=== PATIENT | male | born 1965 | race Caucasian/White ===

== ENCOUNTER 2016-06-13 02:17 | Emergency (ER) | payer SELFPAY ==
[2016-06-13] MEDS ORDERED: FAMOTIDINE 20 MG TABLET PO ONE (03:20)
--- NOTE | 2016-06-13 03:20 | ER Document Report ---
ED General - General Chief Complaint: Chest Pain > 30 Stated Complaint: CHEST PAIN Time seen by provider: 03:04 Mode of Arrival: Ambulatory Information source: Patient Notes: 50-year-old male presents to ED for chest pain, dull with pressure all over with no radiation. Patient states his brother had a MT about a month ago and he 66 years old his mother and father both had heart trouble. Patient states his father had to have multiple stents but of lung cancer his mother had a heart attack at 64 but from complications occasions of scleroderma. TRAVEL OUTSIDE OF THE [place] IN LAST 30 DAYS: No - HPI Onset: This morning - 1:30 this morning Onset/Duration: Intermittent Quality of pain: Dull, Pressure Severity: Moderate Pain Level: 3 Associated symptoms: Chest pain - With epigastric pain Exacerbated by: Denies Relieved by: Denies Similar symptoms previously: Yes Recently seen / treated by doctor: No - Related Data Allergies/Adverse Reactions: No Known Allergies Allergy (Verified 06/13/16 02:30) Home Medications: Current Home Medications Oxycodone HCl [Oxycodone HCl 10 MG Tablet] 1 tab PO QID 06/13/16 [History] Past Medical History - General Information source: Patient - Social History Smoking Status: Current Every Day Smoker Cigarette use (# per day): Yes - pack per day Chew tobacco use (# tins/day): No Smoking Education Provided: Yes - acetaminophen 2 minutes Frequency of alcohol use: Rare - Once or twice a year Drug Abuse: None Occupation: DJ Lives with: Family Family History: Arthritis, CAD, COPD, CVA, DM, Hyperlipidemia, Hypertension, Malignancy, Other - scleroderma. denies: Thyroid Disfunction - Past Medical History Cardiac Medical History: Reports: None Pulmonary Medical History: Reports: None EENT Medical History: Reports: None Neurological Medical History: Reports: None Endocrine Medical History: Reports: None Renal/ Medical History: Reports: None Malignancy Medical History: Reports None GI Medical History: Reports: Hx Gastroesophageal Reflux Disease Musculoskeltal Medical History: Reports Hx Gout, Reports Hx Musculoskeletal Deformity, Reports Hx Musculoskeletal Trauma Skin Medical History: Reports None Psychiatric Medical History: Reports: None Traumatic Medical History: Reports: Hx Fractures - Pelvic bone and fingers Infectious Medical History: Reports: None Past Surgical History: Reports: Hx Inguinal Hernia, Hx Orthopedic Surgery - pin in finger - Immunizations Immunizations up to date: Yes Hx Diphtheria, Pertussis, Tetanus Vaccination: Yes - 2008 History of Influenza Vaccine for 02/2016 - 07/2016 Season: No Review of Systems - Review of Systems Constitutional: No symptoms reported EENT: No symptoms reported Cardiovascular: Chest pain. denies: Palpitations, Heart racing, Dyspnea, Syncope, Dizziness, Lightheaded Respiratory: No symptoms reported Gastrointestinal: Other - Epigastric pain Genitourinary: No symptoms reported Male Genitourinary: No symptoms reported Musculoskeletal: No symptoms reported Skin: No symptoms reported Hematologic/Lymphatic: No symptoms reported Neurological/Psychological: No symptoms reported, Sensory change Physical Exam - Vital signs Vitals: Temp Pulse Resp BP Pulse Ox 98.1 F 82 16 129/81 H 99 06/13/16 02:34 06/13/16 02:34 06/13/16 02:34 06/13/16 02:34 06/13/16 02:34 Interpretation: Normal - General General appearance: Appears well, Alert - HEENT Head: Normocephalic, Atraumatic Eyes: Normal Pupils: PERRL - Respiratory Respiratory status: No respiratory distress Chest status: Nontender Breath sounds: Normal Chest palpation: Normal - Cardiovascular Rhythm: Regular Heart sounds: Normal auscultation Murmur: No - Abdominal Inspection: Normal Distension: No distension Bowel sounds: Normal Tenderness: Nontender Organomegaly: No organomegaly - Back Back: Normal, Nontender - Extremities General upper extremity: Normal inspection, Nontender, Normal color, Normal ROM , Normal temperature General lower extremity: Normal inspection, Nontender, Normal color, Normal ROM , Normal temperature, Normal weight bearing. No: Susie's sign - Neurological Neuro grossly intact: Yes Cognition: Normal Orientation: AAOx4 Saranya Coma Scale Eye Opening: Spontaneous [place] Coma Scale Verbal: Oriented Saranya Coma Scale Motor: Obeys Commands [place] Coma Scale Total: 15 Speech: Normal Motor strength normal: LUE, RUE, LLE, RLE Sensory: Normal - Psychological Associated symptoms: Normal affect, Normal mood - Skin Skin Temperature: Warm Skin Moisture: Dry Skin Color: Normal Course - Re-evaluation Re-evalutation: 06/13/16 07:30 Discussed history and physical with Dr. Jones, she recommended a repeat troponin and if that was normal to discharge patient home to follow-up with his primary doctor. Patient has no personal risk factors except for he smokes. I discussed his family medical history with Dr. Jones also she stated he just needs to follow-up with his primary doctor. All lab results and chest x-ray results given to patient for follow-up. A she was not given aspirin in the ED as he had taken 650 milligram aspirin before coming to the emergency room. - Vital Signs Vital signs: Temp Pulse Resp BP Pulse Ox 98.1 F 82 14 131/77 H 97 06/13/16 02:34 06/13/16 02:34 06/13/16 07:01 06/13/16 07:01 06/13/16 07:01 - Laboratory Result Diagrams: 06/13/16 03:11 06/13/16 03:11 Laboratory results interpreted by me: 06/13/16 06/13/16 06/13/16 03:11 03:11 03:11 RBC 4.25 L Hgb 13.2 L AST 16 L NT-Pro-B Natriuret Pep 153 H Albumin 3.4 L - Diagnostic Test Radiology reviewed: Image reviewed, Reports reviewed - EKG Interpretation by Me When compared to previous EKG there are: No significant change Discharge - Discharge Clinical Impression: Chest pain of uncertain etiology Condition: Stable Disposition: HOME, SELF-CARE Instructions: Family Physicians / Practices Additional Instructions: CHEST PAIN OF UNCLEAR CAUSE: The exact cause of your chest pain isn't clear. Fortunately, there is no evidence of a dangerous medical condition. Further testing may be required to find the source of the pain. Most often, we find that this pain is coming from the chest wall -- the muscles or rib joints in the chest. But chest pain can come from the lung and lung lining, the esophagus, the heart valves or heart lining, and even the stomach or gallbladder. Rest. Eat lightly until the pain is gone. We may prescribe medicine for pain and inflammation. You should call the physician immediately if the pain radiates to the shoulder, jaw or arms; if you start to run a fever or develop a cough; or if you develop shortness of breath, or other new or alarming symptoms. NORMAL EXAM AND WORKUP: At this time, your examination and workup show no significant abnormality. No significant abnormal physical findings were noted. All laboratory, EKG, and imaging (x-ray, CT scans, ultrasound) studies that were ordered show no significant abnormality. Although your examination and all studies that were ordered showed no significant abnormal finding, there are no examinations and no studies that are 100% accurate. There is always the possibility that some abnormality could exist and not be detected with physical examination or within the limits and capabilities of laboratory and other studies. You should return or follow up as you were instructed on your visit today for further evaluation if your symptoms do not resolve. ACID REFLUX DISEASE (GERD): Gastro-Esophageal Reflux Disease (GERD) is caused by stomach acid refluxing back up into the esophagus. The valve at the end of the esophagus may be weak. This is common in persons with a hiatal hernia. GERD symptoms can include indigestion, chest pain, heartburn, or food "sticking." Certain foods, alcohol, and aspirin can make GERD worse. Treatment depends on the severity. Usually, antacids or acid-suppressing medicines are used. When the esophagus is acutely inflamed, the physician will often prescribe membrane-protective drugs such as Carafate. Some patients benefit from medication such as Reglan that tightens the valve at the top of the stomach. Avoid those foods that bring on your symptoms. For many people, these foods are coffee, chocolate, onions, garlic, and carbonated drinks. Don't use alcohol, aspirin, caffeine, or tobacco. Don't eat late at night -- within 4 hours of bedtime. Don't over-eat. If necessary, elevate the head of your bed about 4 inches so that stomach acid will not roll up into your esophagus. Call the doctor if you develop severe chest pain, inability to swallow fluids, fever, or worsening symptoms. ASPIRIN: Aspirin has been shown to have a beneficial effect on blood circulation by reducing the clotting effect of platelets in the blood. These beneficial effects can be achieved by taking just a single baby (81 mg) aspirin a day. It is recommended that any person over the age of forty take a single baby aspirin every day for heart and brain circulation, unless you are allergic to aspirin or have some significant bleeding disorder. It is strongly recommended that people who have proven cardiac or blood circulation disturbances should take a baby aspirin every day. ANTACID THERAPY: You have been instructed to start antacid therapy. Antacids directly neutralize stomach acid. This is useful for acid irritation of the esophagus, gastritis, and ulcers. You should take two tablespoons of antacid one hour after each meal and three hours after each meal. If you are not eating, take the antacid every two hours. If you are using a concentrate (such as Maalox TC), use only one tablespoon. Many antacids affect the bowels. The most common problem is diarrhea. In this case, a pure aluminum hydroxide antacid (such as AlternaGel) can be substituted for some or all doses. If the problem is constipation, add a teaspoon of Milk of Magnesia to each dose. Call the doctor if you experience continued diarrhea or constipation, or if you develop lightheadedness, bloody stool or vomitus, severe abdominal pain, or black stool. FOLLOW-UP CARE: If you have been referred to a physician for follow-up care, call the physician s office for an appointment as you were instructed or within the next two days. If you experience worsening or a significant change in your symptoms, notify the physician immediately or return to the Emergency Department at any time for re-evaluation. Please call your primary doctor today and schedule a follow-up visit. If you have any return of chest pain any shortness of breath sweating or any other concerns please return to the hospital immediately.
[2016-06-13 03:27] LABS: ABSOLUTE BASOPHILS # (AUTO) 0.1 10^3/uL (0.0-0.2); ABSOLUTE EOSINOPHILS # (AUTO) 0.4 10^3/uL (0.0-0.6); ABSOLUTE MONOCYTES (AUTO) 0.9 10^3/uL (0.1-1.4); BASOPHILS % (AUTO) 0.7 % (0-2); EOSINOPHILS % (AUTO) 4.5 % (0-6); HEMATOCRIT 38.7 % (37.9-51.0); HEMOGLOBIN 13.2 g/dL (13.5-17.0); HGB HCT DIFFERENCE 0.9; MEAN CORPUSCULAR HGB CONC 34.1 g/dL (32.0-36.0); MEAN CORPUSCULAR VOLUME 91 fl (80-97); RED BLOOD COUNT 4.25 10^6/uL (4.35-5.55); RED CELL DISTRIBUTION WIDTH 11.8 % (11.5-14.0); SEGMENTED NEUTROPHILS % (AUTO) 53.8 % (42-78); WHITE BLOOD COUNT 9.4 10^3/uL (4.0-10.5)
[2016-06-13 03:59] LABS: ALANINE AMINOTRANSFERASE 22 U/L (21-72); ALBUMIN 3.4 g/dL (3.5-5.0); ALKALINE PHOSPHATASE 92 U/L (38-126); ANION GAP 10 (5-19); ASPARTATE AMINO TRANSFERASE 16 U/L (17-59); BILIRUBIN,TOTAL 0.2 mg/dL (0.2-1.3); BLOOD UREA NITROGEN 15 mg/dL (7-20); CALCIUM 8.5 mg/dL (8.4-10.2); CARBON DIOXIDE 29 mmol/L (22-30); CHLORIDE 105 mmol/L (98-107); CREATINE KINASE 57 U/L (55-170); CREATININE RESULT 0.99 mg/dL (0.52-1.25); GLUCOSE 95 mg/dL (75-110); MAGNESIUM 1.6 mg/dL (1.6-2.3); TOTAL PROTEIN 6.9 g/dL (6.3-8.2)
[2016-06-13 04:04] LABS: APPEARANCE,URINE CLEAR; BILIRUBIN,URINE NEGATIVE (NEGATIVE); GLUCOSE, URINE NEGATIVE (NEGATIVE); KETONES,URINE NEGATIVE (NEGATIVE); LEUKOCYTE ESTERASE,URINE NEGATIVE (NEGATIVE); NITRITE,URINE NEGATIVE (NEGATIVE); PROTEIN,URINE NEGATIVE (NEGATIVE); URINE SPECIFIC GRAVITY 1.017; UROBILINOGEN,URINE NEGATIVE mg/dL (<2.0)
[2016-06-13 04:11] LABS: CREATINE KINASE MB 0.31 ng/mL (<4.55)
[2016-06-13 04:15] LABS: TROPONIN I < 0.012 ng/mL
[2016-06-13 07:47] VITALS: BP 124/80
--- NOTE | 2016-06-13 08:21 | EKG REPORT ---
SEVERITY:- ABNORMAL ECG - SINUS RHYTHM NONSPECIFIC INTRAVENTRICULAR CONDUCTION DELAY BORDERLINE INFERIOR Q WAVES : Confirmed by: Fernie Key MD 13-Jun-2016 08:21:03
== END 2016-06-13 07:47 | disposition home or self-care (01) ==
LOC: ER 02:17
DX: R07.9 Chest pain, unspecified (principal); I25.2 Old myocardial infarction; F17.210 Nicotine dependence, cigarettes, uncomplicated
CPT/HCPCS: 36415; 71020; 80053; 81001; 82550; 82553; 83735; 83880; 84484; 85025; 93005; 93010; 99285

== ENCOUNTER 2016-09-28 05:27 | Emergency (ER) | payer MEDICAID ==
[2016-09-28 06:41] LABS: ABSOLUTE BASOPHILS # (AUTO) 0.1 10^3/uL (0.0-0.2); ABSOLUTE EOSINOPHILS # (AUTO) 0.1 10^3/uL (0.0-0.6); ABSOLUTE LYMPHOCYTES (AUTO) 1.6 10^3/uL (0.5-4.7); ABSOLUTE MONOCYTES (AUTO) 0.9 10^3/uL (0.1-1.4); BASOPHILS % (AUTO) 0.5 % (0-2); EOSINOPHILS % (AUTO) 1.3 % (0-6); HEMATOCRIT 41.2 % (37.9-51.0); HEMOGLOBIN 13.8 g/dL (13.5-17.0); HGB HCT DIFFERENCE 0.2; LYMPHOCYTES % (AUTO) 16.9 % (13-45); MEAN CORPUSCULAR HEMOGLOBIN 30.5 pg (27.0-33.4); MEAN CORPUSCULAR HGB CONC 33.5 g/dL (32.0-36.0); MEAN CORPUSCULAR VOLUME 91 fl (80-97); MONOCYTES % (AUTO) 9.4 % (3-13); RED BLOOD COUNT 4.53 10^6/uL (4.35-5.55); RED CELL DISTRIBUTION WIDTH 12.5 % (11.5-14.0); SEGMENTED NEUTROPHILS % (AUTO) 71.9 % (42-78); WHITE BLOOD COUNT 9.7 10^3/uL (4.0-10.5)
[2016-09-28] MEDS ORDERED: KETOROLAC TROMETHAMINE INJ/PF 30 MG/1 ML SDV IV ONE (06:45)
[2016-09-28 06:52] LABS: ALANINE AMINOTRANSFERASE 23 U/L (21-72); ALKALINE PHOSPHATASE 87 U/L (38-126); ANION GAP 8 (5-19); ASPARTATE AMINO TRANSFERASE 18 U/L (17-59); BILIRUBIN,DIRECT 0.4 mg/dL (0.0-0.4); BILIRUBIN,TOTAL 0.4 mg/dL (0.2-1.3); BLOOD UREA NITROGEN 13 mg/dL (7-20); CALCIUM 9.5 mg/dL (8.4-10.2); CARBON DIOXIDE 29 mmol/L (22-30); CHLORIDE 106 mmol/L (98-107); CREATININE RESULT 1.05 mg/dL (0.52-1.25); GLUCOSE 117 mg/dL (75-110); LIPASE 83.1 U/L (23-300); POTASSIUM 4.7 mmol/L (3.6-5.0); SODIUM 143.1 mmol/L (137-145); TOTAL PROTEIN 7.4 g/dL (6.3-8.2)
--- NOTE | 2016-09-28 06:57 | ER Document Report ---
ED General - General Chief Complaint: Abdominal Pain Stated Complaint: ABDOMINAL PAIN Time Seen by Provider: 09/28/16 06:06 Mode of Arrival: Ambulatory Information source: Patient Notes: 51-year-old male history of kidney stones presents with complaints of difficulty urinating and left lower quadrant abdominal pain that started all of a sudden yesterday. Patient denies any fevers or chills nausea vomiting or diarrhea patient has had 2 previous kidney stones both on the right side in the past TRAVEL OUTSIDE OF THE [place] IN LAST 30 DAYS: No - HPI Onset: Yesterday Onset/Duration: Sudden Quality of pain: Sharp Severity: Mild Pain Level: 1 Associated symptoms: Nausea, Vomiting Exacerbated by: Other - Urination Relieved by: Denies Similar symptoms previously: Yes Recently seen / treated by doctor: No - Related Data Allergies/Adverse Reactions: No Known Allergies Allergy (Verified 06/13/16 02:30) Past Medical History - Social History Smoking Status: Current Every Day Smoker Cigarette use (# per day): Yes Chew tobacco use (# tins/day): No Smoking Education Provided: No Family History: Arthritis, CAD, COPD, CVA, DM, Hyperlipidemia, Hypertension, Malignancy, Other - scleroderma. denies: Thyroid Disfunction Pulmonary Medical History: Reports: Hx Asthma Renal/ Medical History: Reports: Hx Kidney Stones. Denies: Hx Peritoneal Dialysis GI Medical History: Reports: Hx Gastroesophageal Reflux Disease Musculoskeltal Medical History: Reports Hx Gout, Reports Hx Musculoskeletal Deformity, Reports Hx Musculoskeletal Trauma Traumatic Medical History: Reports: Hx Fractures - Pelvic bone and fingers Past Surgical History: Reports: Hx Inguinal Hernia, Hx Orthopedic Surgery - pin in finger - Immunizations Immunizations up to date: Yes Hx Diphtheria, Pertussis, Tetanus Vaccination: Yes - 2008 Review of Systems - Review of Systems Notes: PHYSICAL EXAMINATION: GENERAL: Well-appearing, well-nourished and in no acute distress. HEAD: Atraumatic, normocephalic. EYES: Pupils equal round and reactive to light, extraocular movements intact, sclera anicteric, conjunctiva are normal. ENT: Nares patent, oropharynx clear without exudates. Moist mucous membranes. NECK: Normal range of motion, supple without lymphadenopathy LUNGS: Breath sounds clear to auscultation bilaterally and equal. No wheezes rales or rhonchi. HEART: Regular rate and rhythm without murmurs ABDOMEN: Soft, mildly tender in the left lower quadrant no rebound or guarding Musculoskeletal: Normal range of motion, no pitting or edema. No cyanosis. NEUROLOGICAL: Cranial nerves grossly intact. Normal speech, normal gait. Normal sensory, motor exams PSYCH: Normal mood, normal affect. SKIN: Warm, Dry, normal turgor, no rashes or lesions noted. Physical Exam - Vital signs Vitals: Temp Pulse Resp BP Pulse Ox 97.9 F 57 L 16 148/79 H 100 09/28/16 05:46 09/28/16 05:46 09/28/16 05:46 09/28/16 05:46 09/28/16 05:46 Course - Re-evaluation Re-evalutation: 09/28/16 06:57 Patient has probable kidney stone CT pending 09/28/16 07:35 CT is consistent with a 0.2 cm kidney stone in the left distal ureter. This would be consistent with the patient's presentation, patient has blood in his urine no sign of infection he is otherwise stable for discharge After performing a Medical Screening Examination, I estimate there is LOW risk for ACUTE APPENDICITIS, BOWEL OBSTRUCTION, ACUTE CHOLECYSTITIS, PERFORATED DIVERTICULITIS, INCARCERATED HERNIA, PANCREATITIS, or PERFORATED ULCER, thus I consider the discharge disposition reasonable. Also, there is no evidence or peritonitis, sepsis, or toxicity. I have reevaluated this patient multiple times and no significant life threatening changes are noted. The patient and I have discussed the diagnosis and risks, and we agree with discharging home with close follow-up with the understanding that symptoms and presentations can change. We also discussed returning to the Emergency Department immediately if new or worsening symptoms occur. We have discussed the symptoms which are most concerning (e.g., bloody stool, fever, changing or worsening pain, intractable vomiting - standard verbal up date) that necessitate immediate return. - Vital Signs Vital signs: Temp Pulse Resp BP Pulse Ox 97.9 F 57 L 16 148/79 H 100 09/28/16 05:46 09/28/16 05:46 09/28/16 05:46 09/28/16 05:46 09/28/16 05:46 - Laboratory Result Diagrams: 09/28/16 06:00 09/28/16 06:00 Laboratory results interpreted by me: 09/28/16 09/28/16 06:00 06:00 Glucose 117 H Urine Blood LARGE H - Diagnostic Test Radiology reviewed: Image reviewed, Reports reviewed - 2 Millimeter stone Discharge - Discharge Clinical Impression: Left ureteral stone, Hematuria Abdominal pain Qualifiers: Abdominal location: left lower quadrant Qualified Code(s): R10.32 - Left lower quadrant pain Condition: Stable Disposition: HOME, SELF-CARE Instructions: Abdominal Pain ([facility]), Kidney Stone ([facility]) Prescriptions: Ondansetron [Zofran Odt] 8 mg PO Q6 #10 tab.rapdis Oxycodone HCl/Acetaminophen [Percocet 5-325 mg Tablet] 1 tab PO Q6 #15 tab Tamsulosin HCl [Flomax 0.4 mg Cap.sr] 0.4 mg PO DAILY #14 cap.sr.24h Referrals: CIELO IZQUIERDO MD [Primary Care Provider] - Follow up as needed RANDALL SULTANA MD [ACTIVE STAFF] - Follow up in 3-5 days
[2016-09-28 06:58] LABS: APPEARANCE,URINE SLIGHTLY-CLOUDY; BILIRUBIN,URINE NEGATIVE (NEGATIVE); GLUCOSE, URINE NEGATIVE (NEGATIVE); KETONES,URINE NEGATIVE (NEGATIVE); LEUKOCYTE ESTERASE,URINE NEGATIVE (NEGATIVE); NITRITE,URINE NEGATIVE (NEGATIVE); PROTEIN,URINE NEGATIVE (NEGATIVE); URINE SPECIFIC GRAVITY 1.015; UROBILINOGEN,URINE NEGATIVE mg/dL (<2.0)
--- NOTE | 2016-09-28 07:14 | RADIOLOGY REPORT (SQ) ---
EXAM DESCRIPTION: CT LTD RENAL STONE PROTOCOL ON COMPLETED DATE/TIME: 09/28/2016 7:01 am REASON FOR STUDY: left lower quadrant pain, hx of stones COMPARISON: None. TECHNIQUE: CT scan of the abdomen and pelvis performed without intravenous or oral contrast. Images reviewed with lung, soft tissue, and bone windows. Reconstructed coronal and sagittal MPR images revi ewed. All images stored on PACS. All CT scanners at this facility use dose modulation, iterative reconstruction, and/or weight based d osing when appropriate to reduce radiation dose to as low as reasonably achievable (ALARA). [facility]: Dose Right [facility]: CareDose [facility]: Dose Right [facility]: Teradose 4D [facility]: NeurOp RADIATION DOSE: 11.16mGy. LIMITATIONS: None. FINDINGS: LOWER CHEST: No significant findings. No nodules or infiltrates. NON-CONTRASTED LIVER, SPLEEN, ADRENALS: Evaluation limited by lack of IV contrast. No identified sign ificant masses. Mild hepatic steatosis. PANCREAS: No masses. No peripancreatic inflammatory changes. GALLBLADDER: No identified stones by CT criteria. No inflammatory changes to suggest cholecystitis. RIGHT KIDNEY AND URETER: No suspicious masses. Assessment limited by lack of IV contrast. No signif icant calcifications. No hydronephrosis or hydroureter. LEFT KIDNEY AND URETER: 0.2 cm left distal ureteral stone within 3 cm of the left ureterovesicular ju nction with minimal left hydroureter and mild dilation of the left renal pelvis. Minimal left perine phric fat stranding. AORTA AND RETROPERITONEUM: No aneurysm. No retroperitoneal masses or adenopathy. BOWEL AND PERITONEAL CAVITY: No obvious masses or inflammatory changes. No free fluid. APPENDIX: Normal. PELVIS, BLADDER, AND ABDOMINAL WALL:No abnormal masses. No free fluid. Bladder normal. BONES: L5 developmental limbus vertebral body. Mild disc desiccation at the thoracolumbar junction. Minimal developmental T12 anterior vertebral wedging. OTHER: No other significant finding. IMPRESSION: 0.2 cm left distal ureteral stone with low-grade obstruction. TECHNICAL DOCUMENTATION: JOB ID: [id number] Quality ID # [id number]: Final reports with documentation of one or more dose reduction techniques (e.g., Au tomated exposure control, adjustment of the mA and/or kV according to patient size, use of iterative reconstruction technique) 2010 [employer]- All Rights Reserved
[2016-09-28 07:47] VITALS: BP 138/87
== END 2016-09-28 07:47 | disposition home or self-care (01) ==
LOC: ER 05:27
DX: N20.1 Calculus of ureter (principal); R31.9 Hematuria, unspecified; R10.32 Left lower quadrant pain; R11.2 Nausea with vomiting, unspecified; F17.210 Nicotine dependence, cigarettes, uncomplicated; Z87.442 Personal history of urinary calculi
CPT/HCPCS: 99284; 96374; 36415; 83690; 85025; 80053; 81001; 76380; J1885

== ENCOUNTER 2016-12-05 08:42 | Emergency (ER) | payer MEDICAID ==
[2016-12-05 09:16] VITALS: BP 132/83
--- NOTE | 2016-12-05 09:19 | ER Document Report ---
ED General - General Chief Complaint: Blood Pressure Problem Stated Complaint: BLOOD PRESSURE CONCERNS Time Seen by Provider: 12/05/16 09:05 Mode of Arrival: Ambulatory Information source: Patient Notes: 51-year-old male presents with complaints of high blood pressure noted on his pressure cuff at home. Patient denies any chest pain shortness breath difficulty breathing. Patient does note that his has had viral URI symptoms and that he feels like he has a cough but has not been coughing. Patient denies any headache or neurological deficits patient denies a history of high blood pressure. Patient attempted to go to primary care physician who was closed today TRAVEL OUTSIDE OF THE [place] IN LAST 30 DAYS: No - HPI Onset: Just prior to arrival Onset/Duration: Sudden Quality of pain: No pain Severity: None Pain Level: Denies Associated symptoms: Other Exacerbated by: Denies Relieved by: Denies Similar symptoms previously: No Recently seen / treated by doctor: No - Related Data Allergies/Adverse Reactions: No Known Allergies Allergy (Verified 12/05/16 08:46) Past Medical History - Social History Smoking Status: Current Every Day Smoker Cigarette use (# per day): Yes Chew tobacco use (# tins/day): No Smoking Education Provided: No Family History: Arthritis, CAD, COPD, CVA, DM, Hyperlipidemia, Hypertension, Malignancy, Other - scleroderma. denies: Thyroid Disfunction Pulmonary Medical History: Reports: Hx Asthma Renal/ Medical History: Reports: Hx Kidney Stones. Denies: Hx Peritoneal Dialysis GI Medical History: Reports: Hx Gastroesophageal Reflux Disease Musculoskeltal Medical History: Reports Hx Gout, Reports Hx Musculoskeletal Deformity, Reports Hx Musculoskeletal Trauma Traumatic Medical History: Reports: Hx Fractures - Pelvic bone and fingers Past Surgical History: Reports: Hx Inguinal Hernia, Hx Orthopedic Surgery - pin in finger - Immunizations Immunizations up to date: Yes Hx Diphtheria, Pertussis, Tetanus Vaccination: Yes - 2008 Review of Systems - Review of Systems Notes: REVIEW OF SYSTEMS: CONSTITUTIONAL : Denies fever, chills, or sweats. Denies recent illness. EENT: Denies eye, ear, throat, or mouth pain or symptoms. Denies nasal or sinus congestion or discharge. Denies throat, tongue, or mouth swelling or difficulty swallowing. CARDIOVASCULAR: Denies chest pain. Denies palpitations or racing or irregular heart beat. Denies ankle edema. RESPIRATORY: Admits to nonproductive cough GASTROINTESTINAL: Denies abdominal pain or distention. Denies nausea, vomiting , or diarrhea. Denies blood in vomitus, stools, or per rectum. Denies black, tarry stools. Denies constipation. GENITOURINARY: Denies difficulty urinating, painful urination, burning, frequency, blood in urine, or discharge. MUSCULOSKELETAL: Denies back or neck pain or stiffness. Denies joint pain or swelling. SKIN: Denies rash, lesions or sores. HEMATOLOGIC : Denies easy bruising or bleeding. LYMPHATIC: Denies swollen, enlarged glands. NEUROLOGICAL: Denies confusion or altered mental status. Denies passing out or loss of consciousness. Denies dizziness or lightheadedness. Denies headache. Denies weakness or paralysis or loss of use of either side. Denies problems with gait or speech. Denies sensory loss, numbness, or tingling. Denies seizures. PSYCHIATRIC: Denies anxiety or stress. Denies depression, suicidal ideation, or homicidal ideation. ALL OTHER SYSTEMS REVIEWED AND NEGATIVE. Dictation was performed using [employer] voice recognition software PHYSICAL EXAMINATION: GENERAL: Well-appearing, well-nourished and in no acute distress. HEAD: Atraumatic, normocephalic. EYES: Pupils equal round and reactive to light, extraocular movements intact, sclera anicteric, conjunctiva are normal. ENT: Nares patent, oropharynx clear without exudates. Moist mucous membranes. NECK: Normal range of motion, supple without lymphadenopathy LUNGS: Breath sounds clear to auscultation bilaterally and equal. No wheezes rales or rhonchi. HEART: Regular rate and rhythm without murmurs ABDOMEN: Soft, nontender, nondistended abdomen. No guarding, no rebound. No masses appreciated. Musculoskeletal: Normal range of motion, no pitting or edema. No cyanosis. NEUROLOGICAL: Cranial nerves grossly intact. Normal speech, normal gait. Normal sensory, motor exams PSYCH: Normal mood, normal affect. SKIN: Warm, Dry, normal turgor, no rashes or lesions noted. Physical Exam - Vital signs Vitals: Temp Pulse Resp BP Pulse Ox 98.4 F 82 18 151/78 H 98 12/05/16 08:46 12/05/16 08:46 12/05/16 08:46 12/05/16 08:46 12/05/16 08:46 Course - Re-evaluation Re-evalutation: 12/05/16 09:15 The patient had his blood pressure cuff with him, I checked his blood pressure at the same time that his blood pressure cuff was going on, there was a significant difference his was noted to be 169/93 while our blood pressure was noted to be 132/83 Patient was also evaluated for his cough, he notes that his has had viral syndrome over the past week. Patient otherwise in no significant distress. Patient will be given follow-up with cardiology for further evaluation and care After performing a Medical Screening Examination, I estimate there is LOW risk for RUPTURED ESOPHAGUS, PNEUMOTHORAX, PULMONARY EMBOLISM, ACUTE CORONARY SYNDROME, OR THORACIC AORTIC DISSECTION, thus I consider the discharge disposition reasonable. I have reevaluated this patient multiple times and no significant life threatening changes are noted. The patient and I have discussed the diagnosis and risks, and we agree with discharging home with close follow-up. We also discussed returning to the Emergency Department immediately if new or worsening symptoms occur. We have discussed the symptoms which are most concerning (e.g., bloody sputum, worsening pain or shortness of breath) that necessitate immediate return. - Vital Signs Vital signs: Temp Pulse Resp BP Pulse Ox 98.4 F 82 18 151/78 H 98 12/05/16 08:46 12/05/16 08:46 12/05/16 08:46 12/05/16 08:46 12/05/16 08:46 Discharge - Discharge Clinical Impression: Cough HTN (hypertension) Qualifiers: Hypertension type: essential hypertension Qualified Code(s): I10 - Essential ( primary) hypertension Condition: Stable Disposition: HOME, SELF-CARE Instructions: High Blood Pressure ([facility]) Referrals: HUMA OCASIO MD [ACTIVE STAFF] - Follow up tomorrow
== END 2016-12-05 09:22 | disposition home or self-care (01) ==
LOC: ER 08:42
DX: I10 Essential (primary) hypertension (principal); R05 Cough; F17.210 Nicotine dependence, cigarettes, uncomplicated
CPT/HCPCS: 99283

== ENCOUNTER 2017-09-28 22:04 | Emergency (ER) | payer MEDICAID ==
--- NOTE | 2017-09-28 23:51 | RADIOLOGY REPORT (SQ) ---
EXAM DESCRIPTION: XR ANKLE 3 VIEWS CLINICAL HISTORY: 52 years Male, injury COMPARISON: None. Findings: Bones, joints, and soft tissues of the XR RIGHT ANKLE 3 VIEWS appear intact. IMPRESSION: No acute findings.
--- NOTE | 2017-09-29 00:10 | ER Document Report ---
ED Extremity Problem, Lower - General Chief Complaint: Ankle Injury Stated Complaint: LEG INJURY Time Seen by Provider: 09/28/17 23:48 Mode of Arrival: Wheelchair Information source: Patient Notes: 52-year-old male presents to the emergency department for evaluation of right ankle pain 3 days. Patient reports that he was playing racquetball on Monday and went up to hit the ball and felt something pull in his lower leg and ankle. He denies hearing a pop sound. Patient reports that he has had continuous pain since then and swelling. He denies any numbness to his foot. He reports pain with walking. He denies any knee pain or proximal tibia pain. He also denies any foot pain. He denies any fever, chest pain, shortness of breath, abdominal pain, nausea, vomiting, diarrhea, or dysuria. TRAVEL OUTSIDE OF THE [place] IN LAST 30 DAYS: No - Related Data Allergies/Adverse Reactions: No Known Allergies Allergy (Verified 12/05/16 08:46) Past Medical History - General Information source: Patient - Social History Smoking Status: Unknown if Ever Smoked Family History: Arthritis, CAD, COPD, CVA, DM, Hyperlipidemia, Hypertension, Malignancy, Other - scleroderma. denies: Thyroid Disfunction Patient has suicidal ideation: No Patient has homicidal ideation: No Pulmonary Medical History: Reports: Hx Asthma Renal/ Medical History: Reports: Hx Kidney Stones. Denies: Hx Peritoneal Dialysis GI Medical History: Reports: Hx Gastroesophageal Reflux Disease Musculoskeltal Medical History: Reports Hx Gout, Reports Hx Musculoskeletal Deformity, Reports Hx Musculoskeletal Trauma Traumatic Medical History: Reports: Hx Fractures - Pelvic bone and fingers Past Surgical History: Reports: Hx Inguinal Hernia, Hx Orthopedic Surgery - pin in finger - Immunizations Immunizations up to date: Yes Hx Diphtheria, Pertussis, Tetanus Vaccination: Yes - 2008 Review of Systems - Review of Systems -: Yes All other systems reviewed and negative Physical Exam - Vital signs Vitals: Temp Pulse Resp BP Pulse Ox 98.8 F 82 18 131/82 H 99 09/29/17 00:23 09/29/17 00:23 09/29/17 00:23 09/29/17 00:23 09/29/17 00:23 - Notes Notes: PHYSICAL EXAMINATION: GENERAL: Well-appearing, well-nourished and in no acute distress. HEAD: Atraumatic, normocephalic. Musculoskeletal: Right ankle: Mild swelling to lateral malleolus with no ecchymosis, gross deformity, erythema, or hot to the touch. Generalized tenderness to the lateral malleolus with no focal bony tenderness. Negative Martinez's test. No defect noted to the Achilles tendon. Ankle joint stable to anterior drawer test. No tenderness to the foot. No proximal tib-fib tenderness. Strong pedal pulse with brisk capillary refill. Light sensation intact. Distal neurovascular intact. NEUROLOGICAL: Gait not tested due to pain. Normal balance, speech, and facial symmetry. PSYCH: Normal mood, normal affect. SKIN: Warm, Dry, normal turgor, no rashes or lesions noted. Course - Re-evaluation Re-evalutation: 09/29/17 00:30 Patient presented to the emergency department for evaluation of ankle pain. Consistent with ankle sprain. No evidence of foot fracture, ankle dislocation or fracture, or ruptured Achilles tendon. Ankle x-ray was negative for acute process. The likelihood of other entities in the differential is insufficient to justify any further testing for them. I discussed care plan at length with patient. Any and all questions were answered. Discharged home on crutches, Vinay wrap, and Motrin. Also discharged home with number for orthopedics follow- up. I advised him to follow-up with orthopedics and take medications as instructed. I also advised him to return immediately to the emergency department for any new, worsening, or concerning symptoms as discussed. He understands and agrees with plan. - Vital Signs Vital signs: Temp Pulse Resp BP Pulse Ox 98.8 F 82 18 131/82 H 99 09/29/17 00:23 09/29/17 00:23 09/29/17 00:23 09/29/17 00:23 09/29/17 00:23 Discharge - Discharge Clinical Impression: Right ankle sprain Qualifiers: Encounter type: initial encounter Involved ligament of ankle: unspecified ligament Qualified Code(s): S93.401A - Sprain of unspecified ligament of right ankle, initial encounter Condition: Good Disposition: HOME, SELF-CARE Instructions: Vinay Wrap ([facility]), Use of Crutches ([facility]), Ice & Elevation ([facility]), Sprained Ankle ([facility]) Additional Instructions: Please follow-up with orthopedics and her primary care provider. Please take medications as instructed and return immediately to the emergency department for any new, worsening, or concerning symptoms as discussed. Prescriptions: Ibuprofen [Motrin 600 Mg Tablet] 600 mg PO TID #15 tablet Forms: Return to Work Referrals: CABRERA PARTIDA MD [ACTIVE STAFF] - Follow up as needed
[2017-09-29 00:24] VITALS: BP 131/82
== END 2017-09-29 00:35 | disposition home or self-care (01) ==
LOC: ER 22:04
DX: S93.401A Sprain of unspecified ligament of right ankle, initial encounter (principal); X58.XXXA Exposure to other specified factors, initial encounter; J45.909 Unspecified asthma, uncomplicated
CPT/HCPCS: 99283

== ENCOUNTER 2018-09-12 09:13 | Emergency (ER) | payer MEDICAID ==
[2018-09-12] MEDS ORDERED: ASPIRIN 81 MG TABLET, CHEWABLE PO ONE (09:17)
--- NOTE | 2018-09-12 09:29 | EKG REPORT ---
SEVERITY:- ABNORMAL ECG - SINUS ARRHYTHMIA, RATE 64-93 NONSPECIFIC INTRAVENTRICULAR CONDUCTION DELAY : Confirmed by: Faviola Mirza MD 12-Sep-2018 09:28:01
[2018-09-12 09:54] LABS: ABSOLUTE BASOPHILS # (AUTO) 0.1 10^3/uL (0.0-0.2); ABSOLUTE EOSINOPHILS # (AUTO) 0.3 10^3/uL (0.0-0.6); ABSOLUTE LYMPHOCYTES (AUTO) 2.9 10^3/uL (0.5-4.7); ABSOLUTE MONOCYTES (AUTO) 0.8 10^3/uL (0.1-1.4); ABSOLUTE NEUT (AUTO) 6.2 10^3/uL (1.7-8.2); EOSINOPHILS % (AUTO) 2.8 % (0-6); HEMATOCRIT 41.5 % (37.9-51.0); HEMOGLOBIN 14.1 g/dL (13.5-17.0); LYMPHOCYTES % (AUTO) 28.2 % (13-45); MEAN CORPUSCULAR HGB CONC 33.9 g/dL (32.0-36.0); MEAN CORPUSCULAR VOLUME 92 fl (80-97); PLATELET COUNT 299 10^3/uL (150-450); RED BLOOD COUNT 4.53 10^6/uL (4.35-5.55); RED CELL DISTRIBUTION WIDTH 12.9 % (11.5-14.0); TOTAL CELLS COUNTED % (AUTO) 100 %; WHITE BLOOD COUNT 10.3 10^3/uL (4.0-10.5)
--- NOTE | 2018-09-12 09:55 | RADIOLOGY REPORT (SQ) ---
EXAM DESCRIPTION: CHEST SINGLE VIEW COMPLETED DATE/TIME: 09/12/2018 9:31 am REASON FOR STUDY: bed 4 cp COMPARISON: 06/13/2016 EXAM PARAMETERS: NUMBER OF VIEWS: One view. TECHNIQUE: Single frontal radiographic view of the chest acquired. RADIATION DOSE: NA LIMITATIONS: None. FINDINGS: LUNGS AND PLEURA: No opacities, masses or pneumothorax. No pleural effusion. MEDIASTINUM AND HILAR STRUCTURES: No masses. Contour normal. HEART AND VASCULAR STRUCTURES: Heart normal in size. Normal vasculature. BONES: No acute findings. HARDWARE: None in the chest. OTHER: No other significant finding. IMPRESSION: NO ACUTE RADIOGRAPHIC FINDING IN THE CHEST. TECHNICAL DOCUMENTATION: JOB ID: [id number] [employer]- All Rights Reserved Reading location - IP/workstation name: [email or web address]
[2018-09-12 10:30] LABS: ALANINE AMINOTRANSFERASE 22 U/L (21-72); ALBUMIN 4.1 g/dL (3.5-5.0); ALKALINE PHOSPHATASE 90 U/L (38-126); ANION GAP 10 (5-19); ASPARTATE AMINO TRANSFERASE 18 U/L (17-59); BILIRUBIN,DIRECT 0.3 mg/dL (0.0-0.4); BILIRUBIN,TOTAL 0.3 mg/dL (0.2-1.3); BLOOD UREA NITROGEN 12 mg/dL (7-20); CALCIUM 9.8 mg/dL (8.4-10.2); CARBON DIOXIDE 31 mmol/L (22-30); CHLORIDE 104 mmol/L (98-107); CREATINE KINASE 70 U/L (55-170); GLUCOSE 111 mg/dL (75-110); SODIUM 144.5 mmol/L (137-145); TOTAL PROTEIN 7.5 g/dL (6.3-8.2)
[2018-09-12 10:41] LABS: CREATINE KINASE MB 0.27 ng/mL (<4.55)
[2018-09-12 10:42] LABS: TROPONIN I < 0.012 ng/mL
--- NOTE | 2018-09-12 13:03 | ER Document Report ---
Entered by GIDEON ROGERS SCRIBE 09/12/18 1119 Acting as scribe for:NAOMY HARGROVE MD ED Cardiac - General Chief Complaint: Chest Pain Stated Complaint: CHEST PAIN Time Seen by Provider: 09/12/18 10:54 Primary Care Provider: CIELO IZQUIERDO MD [Primary Care Provider] - Follow up as needed Mode of Arrival: Ambulatory Information source: Patient Notes: 53-year-old male that presents to the emergency department today with complaints of "indigestion" for the last x2 days with associated chest pain. Patient states that both times this pain lasted for about x1 hour. Patient states he has "heartburn all the time but not indigestion". 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 Patient states that both times when his pain began he was watching TV. Patient has a strong family history of heart disease including his mother, father, and brother having an OK at age 64. Patient states when the pain began he was diaphoretic but denies any nausea or vomiting. TRAVEL OUTSIDE OF THE [place] IN LAST 30 DAYS: No - Related Data Allergies/Adverse Reactions: No Known Allergies Allergy (Verified 12/05/16 08:46) Past Medical History - General Information source: Patient - Social History Smoking Status: Current Every Day Smoker Cigarette use (# per day): Yes - 1ppd Chew tobacco use (# tins/day): No Frequency of alcohol use: None Drug Abuse: None Family History: Arthritis, CAD, COPD, CVA, DM, Hyperlipidemia, Hypertension, Malignancy, Other - scleroderma Patient has suicidal ideation: No Patient has homicidal ideation: No Pulmonary Medical History: Reports: Hx Asthma Renal/ Medical History: Reports: Hx Kidney Stones GI Medical History: Reports: Hx Gastroesophageal Reflux Disease Musculoskeletal Medical History: Reports Hx Gout, Reports Hx Musculoskeletal Deformity, Reports Hx Musculoskeletal Trauma Traumatic Medical History: Reports: Hx Fractures - Pelvic bone and fingers Past Surgical History: Reports: Hx Inguinal Hernia, Hx Orthopedic Surgery - pin in finger - Immunizations Immunizations up to date: Yes Hx Diphtheria, Pertussis, Tetanus Vaccination: Yes - 2008 Review of Systems - Review of Systems Constitutional: See HPI, Diaphoresis EENT: No symptoms reported Cardiovascular: See HPI, Chest pain Respiratory: No symptoms reported Gastrointestinal: See HPI, Other - indigestion. denies: Nausea, Vomiting Genitourinary: No symptoms reported Male Genitourinary: No symptoms reported Musculoskeletal: No symptoms reported Skin: No symptoms reported Hematologic/Lymphatic: No symptoms reported Neurological/Psychological: No symptoms reported -: Yes All other systems reviewed and negative Physical Exam - Vital signs Vitals: Temp Resp BP Pulse Ox 98.2 F 17 152/80 H 100 09/12/18 09:29 09/12/18 09:29 09/12/18 09:29 09/12/18 09:29 - Notes Notes: Physical Exam: General: Alert, appears well. HEENT: Normocephalic. Atraumatic. PERRL. Extraocular movements intact. Oropharynx clear. Neck: Supple. Non-tender. Respiratory: No respiratory distress. Rhonchi with forced cough bilaterally, consistent with smoking history. Cardiovascular: Regular rate and rhythm. Abdominal: Normal Inspection. Non-tender. No distension. Normal Bowel Sounds. Back: Non-tender. No deformity or step off. Extremities: Moves all four extremities. Upper extremities: Normal inspection. Normal ROM. Lower extremities: Normal inspection. No edema. Normal ROM. Neurological: Normal cognition. AAOx4. Normal speech. Psychological: Normal affect. Normal Mood. Skin: Warm. Dry. Normal color. Course - Re-evaluation Re-evalutation: 09/12/18 14:42 I discussed the patient with his primary care provider Dr. Izquierdo. He is agreeable to seeing the patient in the office today and scheduling him for an outpatient stress test. He does not feel the patient warrants admission to the hospital for monitoring at this time. - Vital Signs Vital signs: Temp Pulse Resp BP Pulse Ox 98.2 F 11 L 123/85 100 09/12/18 09:29 09/12/18 14:00 09/12/18 13:00 09/12/18 14:00 - Laboratory Result Diagrams: 09/12/18 09:40 09/12/18 09:40 Laboratory results interpreted by me: 09/12/18 09:40 Carbon Dioxide 31 H Glucose 111 H - Diagnostic Test Radiology reviewed: Image reviewed, Reports reviewed - Chest x-ray is unremarkable - EKG Interpretation by Me EKG shows normal: Sinus rhythm, Woodruff, Intervals, QRS Complexes, ST-T Waves Rate: Normal - 85 Rhythm: NSR, Arrthymia Woodruff/QRS: IVCD When compared to previous EKG there are: No significant change - Consults Dr. Solis Time consulted: 14:30 Consulted provider: other - Will see today in the office. Discharge - Discharge Clinical Impression: Chest pain Qualifiers: Chest pain type: unspecified Qualified Code(s): R07.9 - Chest pain, unspecified Condition: Stable Disposition: HOME, SELF-CARE Additional Instructions: Go to see Dr. Izquierdo in the office now. Referrals: CIELO IZQUIERDO MD [Primary Care Provider] - Follow up as needed Scribe Attestation: 09/12/18 11:14 I personally performed the services described in the documentation, reviewed and edited the documentation which was dictated to the scribe in my presence, and it accurately records my words and actions. 09/12/18 1114 I personally performed the services described in the documentation, reviewed and edited the documentation which was dictated to the scribe in my presence, and it accurately records my words and actions.
[2018-09-12 15:59] VITALS: BP 152/87
== END 2018-09-12 15:59 | disposition home or self-care (01) ==
LOC: ER 09:13
DX: R07.9 Chest pain, unspecified (principal); K30 Functional dyspepsia; R61 Generalized hyperhidrosis; I45.9 Conduction disorder, unspecified; F17.210 Nicotine dependence, cigarettes, uncomplicated; J45.909 Unspecified asthma, uncomplicated; Z82.49 Family history of ischemic heart disease and other diseases of the circulatory system
CPT/HCPCS: 36415; 71045; 80053; 82550; 82553; 84484; 85025; 93005; 93010; 99284

== ENCOUNTER 2019-10-15 22:29 | Emergency (ER) | payer SELFPAY ==
--- NOTE | 2019-10-15 23:11 | ER Document Report ---
ED Medical Screen (RME) - General Chief Complaint: Chest Pain Stated Complaint: CHEST PAIN Time Seen by Provider: 10/15/19 23:05 Primary Care Provider: CIELO IZQUIERDO MD [Primary Care Provider] - Follow up as needed Information source: Patient Notes: Patient presents complaining of shortness of breath that started around 10 PM. Patient states he has had intermittent chest pains to the left side of the chest as well. Patient denies any dizziness, nausea or vomiting. Patient complains of feeling shaky and having a mild tremor to the hands. Patient reports history of chronic back pain. Patient does not see a doctor regularly although does have a prescription of nitroglycerin at home. Patient took 975 of aspirin at home this evening. I have greeted and performed a rapid initial assessment of this patient. A comprehensive ED assessment and evaluation of the patient, analysis of test results and completion of the medical decision making process will be conducted by additional ED providers. TRAVEL OUTSIDE OF THE [place] IN LAST 30 DAYS: No - Related Data Allergies/Adverse Reactions: No Known Allergies Allergy (Verified 10/15/19 23:03) Past Medical History Pulmonary Medical History: Reports: Hx Asthma Renal/ Medical History: Reports: Hx Kidney Stones. Denies: Hx Peritoneal Dialysis GI Medical History: Reports: Hx Gastroesophageal Reflux Disease Musculoskeltal Medical History: Reports Hx Gout, Reports Hx Musculoskeletal Deformity, Reports Hx Musculoskeletal Trauma Traumatic Medical History: Reports: Hx Fractures - Pelvic bone and fingers Past Surgical History: Reports: Hx Inguinal Hernia, Hx Orthopedic Surgery - pin in finger - Immunizations Immunizations up to date: Yes Hx Diphtheria, Pertussis, Tetanus Vaccination: Yes - 2008 Physical Exam - Vital signs Vitals: Temp Pulse Resp BP Pulse Ox 98.8 F 100 18 142/69 H 99 10/15/19 22:50 10/15/19 22:50 10/15/19 22:50 10/15/19 22:50 10/15/19 22:50 - Respiratory Respiratory status: No respiratory distress Chest status: Nontender Breath sounds: Normal - Cardiovascular Rhythm: Regular Heart sounds: S1 appreciated, S2 appreciated Course - Vital Signs Vital signs: Temp Pulse Resp BP Pulse Ox 98.8 F 100 18 142/69 H 99 10/15/19 22:50 10/15/19 22:50 10/15/19 22:50 10/15/19 22:50 10/15/19 22:50 Doctor's Discharge - Discharge Referrals: CIELO IZQUIERDO MD [Primary Care Provider] - Follow up as needed
[2019-10-16 00:27] LABS: ABSOLUTE BASOPHILS # (AUTO) 0.1 10^3/uL (0.0-0.2); ABSOLUTE EOSINOPHILS # (AUTO) 0.2 10^3/uL (0.0-0.6); ABSOLUTE LYMPHOCYTES (AUTO) 1.9 10^3/uL (0.5-4.7); ABSOLUTE NEUT (AUTO) 5.7 10^3/uL (1.7-8.2); BASOPHILS % (AUTO) 0.6 % (0-2); EOSINOPHILS % (AUTO) 1.8 % (0-6); HEMATOCRIT 38.3 % (37.9-51.0); HEMOGLOBIN 12.9 g/dL (13.5-17.0); LYMPHOCYTES % (AUTO) 21.1 % (13-45); MEAN CORPUSCULAR HEMOGLOBIN 31.7 pg (27.0-33.4); MEAN CORPUSCULAR HGB CONC 33.8 g/dL (32.0-36.0); MEAN CORPUSCULAR VOLUME 94 fl (80-97); MONOCYTES % (AUTO) 11.7 % (3-13); PLATELET COUNT 281 10^3/uL (150-450); RED BLOOD COUNT 4.08 10^6/uL (4.35-5.55); RED CELL DISTRIBUTION WIDTH 12.5 % (11.5-14.0); SEGMENTED NEUTROPHILS % (AUTO) 64.8 % (42-78); TOTAL CELLS COUNTED % (AUTO) 100 %; WHITE BLOOD COUNT 8.8 10^3/uL (4.0-10.5)
[2019-10-16 00:36] LABS: APPEARANCE,URINE CLEAR; BILIRUBIN,URINE NEGATIVE (NEGATIVE); COLOR,URINE STRAW; GLUCOSE, URINE NEGATIVE (NEGATIVE); KETONES,URINE NEGATIVE (NEGATIVE); LEUKOCYTE ESTERASE,URINE NEGATIVE (NEGATIVE); NITRITE,URINE NEGATIVE (NEGATIVE); PROTEIN,URINE NEGATIVE (NEGATIVE); URINE SPECIFIC GRAVITY 1.003; UROBILINOGEN,URINE NEGATIVE mg/dL (<2.0)
[2019-10-16 00:41] LABS: ALBUMIN 4.2 g/dL (3.5-5.0); ALKALINE PHOSPHATASE 93 U/L (38-126); ANION GAP 7 (5-19); ASPARTATE AMINO TRANSFERASE 20 U/L (17-59); BILIRUBIN,TOTAL 0.1 mg/dL (0.2-1.3); BLOOD UREA NITROGEN 14 mg/dL (7-20); CALCIUM 8.8 mg/dL (8.4-10.2); CARBON DIOXIDE 29 mmol/L (22-30); CHLORIDE 105 mmol/L (98-107); GLUCOSE 107 mg/dL (75-110); TOTAL PROTEIN 7.5 g/dL (6.3-8.2)
[2019-10-16 00:55] LABS: URINE AMPHETAMINES SCREEN NEGATIVE; URINE BARBITURATES SCREEN NEGATIVE; URINE BENZODIAZEPINES SCREEN NEGATIVE; URINE COCAINE SCREEN NEGATIVE; URINE MARIJUANA (THC) SCREEN NEGATIVE; URINE METHADONE SCREEN NEGATIVE; URINE PHENCYCLIDINE SCREEN NEGATIVE
[2019-10-16 01:17] LABS: ADD MANUAL MICROSCOPIC YES; WBC,URINE 0-1 /HPF
[2019-10-16 01:20] LABS: NT PRO BNP 211 pg/mL (<125)
[2019-10-16 01:24] LABS: TROPONIN I < 0.012 ng/mL
--- NOTE | 2019-10-16 03:16 | RADIOLOGY REPORT (SQ) ---
PA and lateral chest radiograph: 10/16/2019 2:14 AM CDT Comparison: None available Indication: 54-year old patient with chest pain. Findings: The cardiomediastinal silhouette is normal in size.No pneumothorax is seen. No acute airspace opacities are seen. No discrete pleural effusion is apparent. Impression: No acute airspace opacities are seen.
[2019-10-16] MEDS ORDERED: IPRATROPIUM/ALBUTEROL 0.5-2.5 MG/3 ML AMPUL NEB ONE (05:30)
--- NOTE | 2019-10-16 05:32 | ER Document Report ---
ED Cardiac - General Chief Complaint: Chest Pressure Stated Complaint: CHEST PAIN Time Seen by Provider: 10/15/19 23:05 Primary Care Provider: [facility] [Provider Group] - Follow up as needed [facility] [Provider Group] - Follow up as needed CIELO IZQUIERDO MD [ACTIVE STAFF] - Follow up as needed Notes: Patient is a 54-year-old male who presents emergency department with the chief complaint of shortness of breath. Shortness of breath started around 10:00 in the morning. He also has stated that he had chest pains that would be intermittent. Denies any radiation. Describes it as a palpitation feeling. Denies any chest pain at this time. Patient denies any vomiting. He took aspi rin at home. Patient is an everyday smoker. TRAVEL OUTSIDE OF THE [place] IN LAST 30 DAYS: No - Related Data Allergies/Adverse Reactions: No Known Allergies Allergy (Verified 10/15/19 23:03) Home Medications: NITRO. ANTI-NARCOTIC MEDS Past Medical History - General Information source: Patient - Social History Smoking Status: Current Every Day Smoker Frequency of alcohol use: None Drug Abuse: None Family History: Arthritis, CAD, COPD, CVA, DM, Hyperlipidemia, Hypertension, Malignancy, Other - scleroderma Patient has homicidal ideation: No Pulmonary Medical History: Reports: Hx Asthma Renal/ Medical History: Reports: Hx Kidney Stones. Denies: Hx Peritoneal Dialysis GI Medical History: Reports: Hx Gastroesophageal Reflux Disease Musculoskeletal Medical History: Reports Hx Gout, Reports Hx Musculoskeletal Deformity, Reports Hx Musculoskeletal Trauma Traumatic Medical History: Reports: Hx Fractures - Pelvic bone and fingers Past Surgical History: Reports: Hx Inguinal Hernia, Hx Orthopedic Surgery - pin in finger - Immunizations Immunizations up to date: Yes Hx Diphtheria, Pertussis, Tetanus Vaccination: Yes - 2008 Review of Systems - Review of Systems Notes: REVIEW OF SYSTEMS: CONSTITUTIONAL : Denies recent illness. Denies recent unintentional weight loss. Denies fever, chills, or sweats. EENT: Denies eye, ear, throat, or mouth pain, discharge, or symptoms. Denies nasal or sinus congestion. CARDIOVASCULAR: See HPI. RESPIRATORY: See HPI. GASTROINTESTINAL: Denies nausea, vomiting, and diarrhea. Denies abdominal pain. Denies constipation. GENITOURINARY: Denies difficulty urinating, burning, blood in urine, urgency or frequency. MUSCULOSKELETAL: Denies neck and back pain. Denies joint pain or swelling. SKIN: Denies rash, itchiness, or lesions HEMATOLOGIC : Denies easy bruising or bleeding. LYMPHATIC: Denies swollen, painful, enlarged glands. NEUROLOGICAL: Denies no numbness or tingling denies weakness. Denies headache. Denies altered mental status. Denies alteration in speech. PSYCHIATRIC: Denies stress, anxiety, alteration in sleep patterns, or depression. All other systems reviewed and negative. Physical Exam - Vital signs Vitals: Temp Pulse Resp BP Pulse Ox 98.8 F 100 18 142/69 H 99 10/15/19 22:50 10/15/19 22:50 10/15/19 22:50 10/15/19 22:50 10/15/19 22:50 - Notes Notes: PHYSICAL EXAMINATION: GENERAL: Appears well, healthy, well-nourished, no acute distress. HEAD: Normocephalic, atraumatic. EYES: PERRL, conjunctiva normal, all extraocular movements intact, sclera nonicteric ENT: Moist mucous membranes. NECK: Supple, no noticeable swelling, redness, rash. Normal range of motion. LUNGS: Equal breath sounds bilaterally and clear to auscultation. Expiratory wheezes noted throughout all lung chow. CARDIOVASCULAR: S1-S2, regular rate, regular rhythm. Radial pulses 2+, normal. ABDOMEN: Normoactive bowel sounds. Soft, nontender, no guarding, no rebound tenderness, and no masses palpated. EXTREMITIES: Normal strength and range of motion, no pitting or edema. No cyanosis. NEUROLOGICAL: Moves all extremities upon command. Strength 5/5 in all extremities. PSYCH: Normal mood, normal affect. SKIN: Warm, dry. No rash, lesions, ulcerations noted. Normal skin turgor. Course - Re-evaluation Re-evalutation: 10/16/19 05:30 Hematology is unremarkable. Chemistries are also unremarkable. BNP is only slightly elevated. Initial troponin is unremarkable. Urine drug screen ordered in triage is unremarkable. Patient was given DuoNeb treatment. We will also repeat cardiac enzymes. Patient's oxygen saturation is 97-99 on room air. He is not tachycardic or tachypneic. I have a low suspicion for a pulmonary emboli. 10/16/19 06:47 Patient second troponin is negative. His lung sounds are now clear. Patient will follow-up with a primary care provider. Had a conversation with the patient about smoking cessation. He is in agreement to cut back on his smoking and eventually quit. We will have him follow-up with [facility] or [facility], as he does not have insurance at this time. Follow-up precautions were given. Verbal discharge instructions were given to the patient. They verbalized understanding. They are stable for discharge. - Vital Signs Vital signs: Temp Pulse Resp BP Pulse Ox 98.0 F 75 15 130/74 H 99 10/16/19 07:24 10/16/19 07:24 10/16/19 07:24 10/16/19 07:24 10/16/19 07:24 - Laboratory Result Diagrams: 10/16/19 00:17 10/16/19 00:17 Laboratory results interpreted by me: 10/16/19 10/16/19 10/16/19 00:17 00:17 00:17 RBC 4.08 L Hgb 12.9 L Total Bilirubin 0.1 L NT-Pro-B Natriuret Pep 211 H Urine Blood 10/16/19 00:17 RBC Hgb Total Bilirubin NT-Pro-B Natriuret Pep Urine Blood SMALL H Discharge - Discharge Clinical Impression: Shortness of breath Chest pain Qualifiers: Chest pain type: unspecified Qualified Code(s): R07.9 - Chest pain, unspecified Condition: Stable Disposition: HOME, SELF-CARE Additional Instructions: You were seen today in the emergency department for shortness of breath and chest pain. Your cardiac work-up was normal. Part of your symptoms are due to smoking. Cut back 1 cigarette a week as we discussed. Follow-up with 1 of the clinics below in regards to this visit. Referrals: CIELO IZQUIERDO MD [ACTIVE STAFF] - Follow up as needed [facility] [Provider Group] - Follow up as needed [facility] [Provider Group] - Follow up as needed
[2019-10-16 07:25] VITALS: BP 130/74
--- NOTE | 2019-10-16 11:11 | EKG REPORT ---
SEVERITY:- ABNORMAL ECG - SINUS TACHYCARDIA NONSPECIFIC INTRAVENTRICULAR CONDUCTION DELAY BORDERLINE INFERIOR Q WAVES MINIMAL ST DEPRESSION, INFERIOR LEADS : Confirmed by: Faviola Mirza MD 16-Oct-2019 11:10:33
== END 2019-10-16 07:25 | disposition home or self-care (01) ==
LOC: ER 22:29
DX: R06.02 Shortness of breath (principal); R07.9 Chest pain, unspecified; F17.200 Nicotine dependence, unspecified, uncomplicated; Z87.442 Personal history of urinary calculi
CPT/HCPCS: 93005; 94640; 99285; 36415; 83735; 85025; 80053; 81001; 84484; 80307; 83880; 71046; 93010; J7620